=== PATIENT | male | born 1965 | race Caucasian/White ===

== ENCOUNTER 2020-01-17 18:56 | Emergency (ER) | payer BC, SELFPAY ==
[2020-01-17 18:56] VITALS: BP 214/111; PULSE 78; RESP 16; TEMP 36.9; O2SAT 97; BMI 28.1
[2020-01-17 19:03] VITALS: BMI 28.1
--- NOTE | 2020-01-17 19:04 | ECG_ITS ---
APPROVED REPORT Exam: Resting ECG HR:77 bpm ECG Measurements Heart Rate 77 AXES FL 160 P 55 QRSd 88 QRS -23 QT 368 T -10 QTc 416 Conclusion Normal sinus rhythm Nonspecific ST and T wave abnormality Abnormal ECG Electronically signed by : Pankaj Camp, 01/18/2020 06:10:20
--- NOTE | 2020-01-17 19:04 | XR_ITS ---
PROCEDURE: XR CHEST PORTABLE CLINICAL HISTORY: CHEST PAIN Left-sided chest pain COMPARISON: CR CXR2V XR chest 2V from 10/10/2017 FINDINGS: The cardiomediastinal silhouette and pulmonary vascularity are within normal limits. There is mild elevation of the left hemidiaphragm. No lobar consolidation or collapse. No acute bony abnormalities. IMPRESSION: No acute findings. Dictated by: Parish Martino MD 01/18/2020 05:14 Parish Martino MD in [place] 01/18/2020 05:14
--- NOTE | 2020-01-17 19:15 | HMH.EDCP ---
ED Disposition Clinical Impression: Nonspecific chest pain, Dyspepsia Disposition: Home, Self-Care Condition on Discharge: Good Instructions: DI for Atypical Chest Pain Prescriptions: Famotidine [Pepcid] 20 mg PO DAILY #20 tab Prescription Printed Referrals: Provider,Referral, [Referring] - - Critical Care Critical Care Time: No Attestation: On 01/17/20, the high probability of a clinically significant, sudden or life threatening deterioration of the following system(s) required my full and direct attention, intervention and personal management. The time I documented below is in addition to time spent performing reported procedures but includes the following listed in this critical care notation. Medical Decision Making - Medical Records Medical records reviewed: Yes: I reviewed the patient's medical records. - Lio Inquiry Pt receiving controlled substance: No Vital Signs: 01/17/20 18:56 01/17/20 19:24 Temperature 98.5 F Temperature Source Oral Pulse Rate [Left Radial] 78 62 Respiratory Rate 16 16 Blood Pressure [Right Arm] 214/111 H 171/109 H Blood Pressure Mean [Right Arm] 145 129 Blood Pressure Source [Right Arm] Automatic Cuff Blood Pressure Position [Right Arm] Sitting Sitting 02 Sat by Pulse Oximetry 97 97 Oxygen Delivery Method Room Air Room Air - Lab Data Lab Results 01/17/20 18:56: WBC 11.7 H, RBC 5.53, Hgb 16.7, Hct 48.6, MCV 87.8, MCH 30.1, MCHC 34.3, RDW 16.3, Plt Count 212, MPV 23.7 H, Neut % (Auto) 73.0, Lymph % (Auto) 20.1, [place] % (Auto) 4.9, Eos % (Auto) 0.6, Baso % (Auto) 1.5, Neut # (Auto) 8.6 H, Lymph # (Auto) 2.4, [place] # (Auto) 0.6, Eos # (Auto) 0.1, Baso # (Auto) 0.2 01/17/20 18:56: Sodium 138, Potassium 3.8, Chloride 100, Carbon Dioxide 29, Anion Gap 12.8, BUN 15, Creatinine 1.10, Estimated Creat Clear 91, Estimated GFR 70, Est GFR ( Amer) 84, Glucose 187 H, Calcium 9.6, Troponin I < 0.01 11/03/20 18:56: NT-Pro-B Natriuret Pep 21.4 Result diagrams: 01/17/20 18:56 01/17/20 18:56 Orders (Tests/Meds): ED MEDICATIONS Generic Name Dose Route Start Last Admin Trade Name Freq PRN Reason Stop Dose Admin Lisinopril 10 mg 01/18/20 09:00 Lisinopril 10mg Tablet PO 02/17/20 08:59 DAILY HERNANDEZ Discontinued Medications Generic Name Dose Route Start Last Admin Trade Name Freq PRN Reason Stop Dose Admin Aspirin 325 mg 01/17/20 19:05 01/17/20 19:15 Aspirin 325mg Tablet PO 01/17/20 19:06 325 mg ONCE ONE Administration ORDERS Category Date Time Status XR chest portable Stat Exams 01/17/20 19:04 Taken Troponin I Q3H Lab 01/17/20 22:15 Ordered Troponin I Q3H Lab 01/18/20 01:15 Ordered - Radiology Data #1 Image(s): Chest Image Reviewed: Yes I reviewed the patient's radiology results, Yes I reviewed the patient's radiology image Preliminary Findings: Normal/NAD, No Infiltrates Seen - ECG Data Tracing #1 Normal ventricular rate of 77 bpm. Normal SD interval. Normal QTC. Sinus rhythm with nonspecific changes. ECG initial impression date: 01/17/20 ECG initial impression time: 18:56 - Reevaluation(s) Time: 19:46 Reevaluation #1: On reevaluation, patient remains pain-free. Troponin negative. Patient has follow-up with his PCP in the morning. I do believe this is related to dyspepsia. Patient was given strict return precautions. Verbalized understanding. Medical Decision Narrative: 54-year-old male presented to the emergency department with subacute chest discomfort. Patient symptoms are more consistent with dyspepsia. Patient is relatively low risk based on heart score. Work-up initiated. Chest Pain HPI - General Chief Complaint: Chest Pain Stated Complaint: Chest Pain Time Seen by Provider: 01/17/20 19:00 Mode of Arrival: Ambulatory Limitations: No Limitations Description of Symptoms (Recalled from ER Triage Doc. by RN): pt complains of intermitten chest pain for the past 2 weeks. pt described t
[2020-01-17 19:20] LABS: Basophils # 0.2 K/mm3 (0-0.2); Basophils % 1.5 % (0.1-2.0); Eosinophils # 0.1 K/mm3 (0.0-0.4); Eosinophils % 0.6 % (0.1-12.0); Hematocrit 48.6 % (42.0-52.0); Hemoglobin 16.7 g/dL (14.1-18.0); Lymphocytes # 2.4 K/mm3 (0.7-4.5); Lymphocytes % 20.1 % (10-50); Mean Corpuscular HGB Conc 34.3 g/dL (31.8-35.4); Mean Corpuscular Hemoglobin 30.1 pg (27.0-31.2); Mean Corpuscular Volume 87.8 fl (80-94); Mean Platelet Volume 23.7 fl (7.4-10.4); Monocytes # 0.6 K/mm3 (0.1-1.0); Monocytes % 4.9 % (1.7-9.3); Neutrophils # 8.6 K/mm3 (1.8-7.8); Platelet Count 212 K/mm3 (142-424); Red Blood Count 5.53 M/mm3 (4.60-6.20); Red Cell Distribution Width 16.3 % (11.5-17.5); White Blood Count 11.7 K/mm3 (4.8-10.8)
[2020-01-17 19:21] LABS: Chloride 100 mmol/L (98-107); Sodium 138 mmol/L (136-145)
[2020-01-17 19:22] LABS: Potassium 3.8 mmoL/L (3.5-5.1)
[2020-01-17 19:24] VITALS: BP 171/109; PULSE 62; RESP 16; O2SAT 97
[2020-01-17 19:25] LABS: Anion Gap 12.8 mEq/L (5-15); Blood Urea Nitrogen 15 mg/dl (9-20); Calcium 9.6 mg/dl (8.4-10.2); Carbon Dioxide 29 mmol/L (22.0-30.0); Creatinine Clearance Estimated 91 mL/min (50-200); Estimated Glomerular Filt Rate 70 ml/min (>60); GFR (African American) 84 ML/MIN (>60); Glucose 187 mg/dl (74-100)
[2020-01-17 19:35] LABS: NT Pro Brain Natriuretic Pep. 21.4 pg/mL (0-125)
[2020-01-17 19:37] LABS: Troponin I < 0.01 ng/ml (0.00-0.034)
[2020-01-17 20:01] VITALS: BP 181/101; PULSE 89; RESP 16; TEMP 36.8; O2SAT 98
== END 2020-01-17 20:02 | disposition home or self-care (01) ==
PROVIDERS: Emergency Provider Emergency Medicine; PCP Family Medicine
DX: R07.89 Other chest pain (principal); R10.13 Epigastric pain
CPT/HCPCS: 71045; 80048; 83880; 84484; 85025; 93005; 99282

== ENCOUNTER → 2020-01-30 07:11 | Outpatient (CLI) | payer BC, SELFPAY ==
--- NOTE | 2020-01-30 | CA_ITS ---
APPROVED REPORT Exam: Exercise Treadmill Technologist: Madisyn Salinas Ht: 5 ft 8 in Wt: 185 lbs BSA: 1.98 m2 HR: 64 bpm BP: 177/93 mmHg Indications: Chest pain Medical History Medications: Lisinopril,,,,, Famotidine,,,,, Stress Test Details Test: Darian HR Resting HR: 70 bpm Max Heart Rate (APMHR): 166 bpm Max HR Achieved: 155 bpm Target HR (85% APMHR): 141 bpm % of APMHR: 93 Recovery HR: 89 bpm BP Resting BP: 177.0/93.0 mmHg Max BP: 194.0/92.0 mmHg Recovery BP: 152.0/94.0 mmHg ECG Clinical Exercise duration: 09:00 min Highest Stage Achieved: Exercise capacity: 10.1 METs Stress ECG Conclusion Resting EKG: Sinus rhythm Darian Protocol complete. Exercised 09:00, METS 10.1, Maximum blood pressure 194/92, Maximum heart rate 155 BPM. Test stopped due to shortness of breath during peak exercise. Symptoms: Shortness of breath during peak exercise, resolved in recovery. Arrhythmias/Ectopy: Occasional PVC ST-T Changes: Less than 1.[address] depression. Conclusion: Images to follow. Test Summary . . . . . . . . . Cardiolite injected . Stop exercise at 09:00 . . . . . . Electronically signed by : Magdaleno Martinez, 01/31/2020 06:39:43
--- NOTE | 2020-01-30 07:19 | NM_ITS ---
APPROVED REPORT Exam: Nuclear Stress Test Indication: Chest pain, HTN, High cholesterol, Family history Patient Location: Outpatient Stress Tech: Madisyn Salinas [place] Tech:Юлия Loza, ARRT, RT (R)(N) Ht: 5 ft 8 in Wt: 185 lbs HR: 64 bpm BP: 177/93 mmHg BSA: 1.98 m2 BMI: 28.1 History: Chest pain, HTN, High cholesterol, Family history Procedure: Patient exercised on Darian protocol 9:00 minutes and sec, resting heart rate 64 bpm, resting blood pressure 177/93 mmHg, with exercise maximum heart rate achived was 155 bpm which is 93 % of the maximum predicted heart rate and blood pressure was 194/92 mmHg. Test was stopped due to SOB. Patient denied any complaint of chest pain. Patient has Good exercise capacity, achieved 10.1 METs of workload on treadmill, the blood pressure response to exercise was Adequate. Electrocardiogram Resting electrocardiogram shows sinus rhythm, with exercise there is less than 1.[address] segment depression noted from the baseline EKG. The EKG portion of the exercise Myoview is negative for ischemia. Cardiac Stress and Resting SPECT Images: Cardiac Stress and Resting SPECT images were obtained using technetium 99m Myoview 32.0 mCi stress and 10.55 mCi at rest. Gated SPECT for the analysis of segmental wall motion and calculation of the ejection fraction also done. Cardiac stress and rest SPECT images show uniform myocardial activity without segmental perfusion abnormality, computer derived ejection fraction is 54% with no regional wall motion abnormality, right ventricle is mildly enlarged with normal contractility. Conclusion: 1. The EKG portion of the exercise Myoview is negative for ischemia, patient has good exercise capacity achieved 10.1 METs of workload on treadmill, the blood pressure response to exercise was adequate, there was no exercise-induced chest discomfort 2. No scintigraphic evidence of reversible ischemia seen, computer derived ejection fraction 54% with no regional wall motion abnormality, right ventricle is normal size and contractility. 3. Normal exercise Myoview study. Electronically signed by : Magdaleno Martinez, 01/31/2020 06:52:07
--- NOTE | 2020-01-30 09:21 | HMH.ITSHM ---
Current Home Medications as stated by this patient Amandeep Pedro or life assurance representative. []LISINOPRIL
== END ==
PROVIDERS: PCP Family Medicine; Visit Provider Family Medicine
DX: R07.9 Chest pain, unspecified (principal)
CPT/HCPCS: 78452; 93017; A9502

== ENCOUNTER → 2020-10-26 08:28 | Outpatient (CLI) | payer BC, SELFPAY ==
[2020-10-26 09:37] LABS: Alanine Aminotransferase 42 U/L (12-78); Albumin Level 3.9 g/dl (3.5-5.0); Albumin/Globulin Ratio 1.5 (1.1-1.8); Alkaline Phosphatase 141 U/L (38-126); Anion Gap 11.7 mEq/L (5-15); Aspartate Amino Transferase 26 U/L (17-59); Bilirubin,Total 0.8 mg/dl (0.2-1.3); Blood Urea Nitrogen 18 mg/dl (9-20); Calcium 8.7 mg/dl (8.4-10.2); Carbon Dioxide 28 mmol/L (22.0-30.0); Chloride 100 mmol/L (98-107); Estimated Glomerular Filt Rate 88 ml/min (>60); GFR (African American) 106 ML/MIN (>60); Globulin 2.6 g/dL (1.3-3.2); Glucose 351 mg/dl (74-100); HDL Cholesterol 45 mg/dl (40-60); Potassium 4.7 mmoL/L (3.5-5.1); Sodium 135 mmol/L (136-145); Total Protein,Serum 6.5 g/dl (6.3-8.2)
[2020-10-26 09:48] LABS: Direct LDL Cholesterol 167.25 mg/dL (100-129)
[2020-10-26 10:01] LABS: Chol/HDL Ratio 8.1 (1-3.5); Cholesterol 363 mg/dl (140-200); Triglycerides 456 mg/dl (30-150)
[2020-10-26 10:07] LABS: Prostate Specific Ag Screen 5.5 ng/ml (0.0-4.0)
[2020-10-26 12:01] LABS: Hemoglobin A1C 13.5 % (4.0-6.0)
== END ==
PROVIDERS: Visit Provider Family Medicine
DX: R81 Glycosuria (principal); N40.0 Benign prostatic hyperplasia without lower urinary tract symptoms; Z12.5 Encounter for screening for malignant neoplasm of prostate
CPT/HCPCS: 36415; 80053; 80061; 83036; G0103

== ENCOUNTER 2023-07-13 09:53 | Emergency (ER) | payer BC, SELFPAY ==
--- NOTE | 2023-07-13 09:50 | ECG_ITS ---
APPROVED REPORT Exam: Resting ECG HR:66 bpm ECG Measurements Heart Rate 66 AXES SD 162 P 55 QRSd 100 QRS -47 QT 355 T 34 QTc 368 Conclusion SINUS RHYTHM PATTERN CONSISTENT WITH PULMONARY DISEASE LEFT ANTERIOR FASCICULAR BLOCK [QRS AXIS <= -45, QR IN I, RS IN II] ABNORMAL ECG Electronically signed by : SLAVA RANDOLPH, 07/13/2023 15:28:43
[2023-07-13 09:54] VITALS: BP 136/74; PULSE 83; RESP 16; TEMP 36.6; O2SAT 94; BMI 26.6
--- NOTE | 2023-07-13 09:59 | XR_ITS ---
FINAL REPORT TECHNIQUE: Single view chest CLINICAL HISTORY: chest pain FINDINGS: A single view of the chest was obtained. The heart and mediastinum are within normal limits. The lungs are clear. There is no pneumothorax. Osseous structures are unremarkable. IMPRESSION: No acute cardiopulmonary process. Reviewed, Interpreted and Dictated by Laxmi Grace MD Transcribed by Jessie Dickinson Authenticated and [facility]
[2023-07-13 10:00] VITALS: BP 181/99; PULSE 70; RESP 18; O2SAT 97
[2023-07-13 10:05] LABS: MANUAL DIFFERENTIAL MANUAL DIFFERENTIAL (MANUAL DIFF)
--- NOTE | 2023-07-13 10:07 | HMH.EDCP ---
Discharge Plan Disposition Chief Complaint: Chest Pain Prescriptions Prescriptions: No Action famotidine 20 MG tablet 20 mg PO DAILY Qty: 20 0RF Referrals Follow up/Referrals: Pavan Arcos MD [Primary Care Provider] - See instructions Larry Reddy MD [Staff Physician] - See instructions Activity Restrictions/Add. Instructions Additional Instructions/Restrictions: At this time it was felt you are safe to be discharged home. If new or worsening symptoms please do not hesitate to return the emergency department. Please follow-up with Dr. Andrews tomorrow at 1 PM. When you show up at the cardiology desk say that Dr. Choi wanted you seen at 1 PM as you are in the emergency department yesterday. Please continue to follow-up with your family doctor for long-term management of your elevated blood sugar. Clinical Impressions Clinical Impression: Chest pain, Hyperglycemia Discharge ED Provider: Fahad Kay [facility] General Chief Complaint: Chest Pain Stated Complaint: chest pain Time Seen by Provider: 07/13/23 09:54 Mode of Arrival: Ambulatory Source of Information: Patient Limitations: No Limitations Description of Symptoms (Recalled from ER Triage Doc. by RN): Patient complaint of left sided chest pain that radiates to his armpit. States it started last night and comes and goes. History of Present Illness HPI narrative: Patient is a 57-year-old male with past medical history of hypertension, hyperlipidemia who presents emergency department for evaluation of chest pain. Onset was acute, over the last 24 hours, left-sided radiating into his axilla. Worse with exertion but does occur at rest and waxes and wanes. Does not radiate through to his back. Patient has no past medical history of ACS or stents. No other acute complaints at this time. Related Data Previous Rx's Medication Instructions Recorded famotidine 20 mg tablet 20 mg PO DAILY #20 tabs 01/17/20 Allergies Allergy/AdvReac Type Severity Reaction Status Date / Time No Known Allergies Allergy Unverified 03/03/17 14:52 [facility] Disclaimer: The information contained in this section may have been updated after the patient was seen, as this information can be updated by other users. Social History Smoking Status: Unknown if ever smoked alcohol intake: never current occupational status: employed Travel in the last 8 weeks: None ROS Obtained: Yes Systems reviewed as appropriate & no additional complaints except as documented Physical Exam General General appearance: alert and in no apparent distress Head Head exam: atraumatic and normocephalic Eye Eye exam: Present PERRL and EOMI ENT ENT exam: Present mucous membranes moist Neck Neck exam: Present normal inspection Chest Chest inspection: Present normal inspection and symmetric chest wall rise Respiratory Respiratory exam: Present normal lung sounds bilaterally; Absent respiratory distress Cardiovascular Cardiovascular exam: Present regular rate, normal rhythm and other (Palpable left radial pulse) Abdominal Exam Abdominal exam: Present soft; Absent tenderness Extremities Exam Extremities exam: Present normal inspection and other (No asymmetric swelling or discoloration of the bilateral upper extremities) Neurological Exam Neurological exam: Present alert Psychiatric Psychiatric exam: Present normal affect Skin Skin exam: Present warm and dry HEART Score HEART Score HEART Score assessment performed?: Yes History (anamnesis): Highly suspicious ECG: Non-specific disturbance Age: 45-65 years Risk factors: 1-2 risk factors Troponin: </= normal limit HEART Score: 5 Critical Care Critical Care Time Critical Care Time: No Medical Decision Making Lio Inquiry Pt receiving controlled substance: No Vital Signs Vital Signs: 07/13/23 09:54 07/13/23 10:00 07/13/23 11:11 Temperature 97.8 F Temperature Source Oral Pulse Rate 70 54 L Pulse Rate [Radial] 83 Respiratory Rate 16 18 13 Blood Pressure 181/99 H 158/83 H Blood Pressure [Right Arm] 136/74 Blood Pressure Mean 138 Blood Pressure Mean [Right Arm] 94 Blood Pressure Source [Right Arm] Automatic Cuff Blood Pressure Position [Right Arm] Sitting 02 Sat by Pulse Oximetry 94 L 97 98 Oxygen Delivery Method Room Air Room Air 07/13/23 11:30 07/13/23 12:00 Temperature Temperature Source Pulse Rate 53 L 59 L Pulse Rate [Radial] Respiratory Rate 17 12 Blood Pressure 147/82 H 151/88 H Blood Pressure [Right Arm] Blood Pressure Mean Blood Pressure Mean [Right Arm] Blood Pressure Source [Right Arm] Blood Pressure Position [Right Arm] 02 Sat by Pulse Oximetry 99 98 Oxygen Delivery Method Room Air Room Air Lab Data Labs: Lab Results 07/13/23 09:55: WBC 6.5, RBC 5.52, Hgb 16.4, Hct 49.1, MCV 89.0, MCH 29.7, MCHC 33.4, RDW 14.0, Plt Count 218, MPV 8.8, Neut % (Auto) 66.5, Lymph % (Auto) 26.7, [place] % (Auto) 4.8, Eos % (Auto) 1.1, Baso % (Auto) 0.8, Neut # (Auto) 4.3, Lymph # (Auto) 1.7, [place] # (Auto) 0.3, Eos # (Auto) 0.1, Baso # (Auto) 0.1, Total Counted 100, Neutrophils % (Manual) 63, Band Neutrophils % 1.0, Lymphocytes % (Manual) 29, Monocytes % (Manual) 7, Platelet Estimate Normal, RBC Morphology Normal, Sodium 139, Potassium 4.1, Chloride 106, Carbon Dioxide 28, Anion Gap 9.1, BUN 14, Creatinine 1.10, Estimated Creat Clear 83, Estimated GFR 69, Est GFR ( Amer) 83, Glucose 192 H, Calcium 9.4, Total Bilirubin 0.7, AST 26, ALT 23, Alkaline Phosphatase 107, Troponin I < 0.01, Total Protein 7.4, Albumin 4.6, Globulin 2.8, Albumin/Globulin Ratio 1.6 07/13/23 12:15: Troponin I < 0.01 07/13/23 09:55 07/13/23 09:55 Response Orders (Tests/Meds): ED MEDICATIONS Generic Name Dose Route Start Last Admin Trade Name Freq PRN Reason Stop Dose Admin Nitroglycerin 0.4 mg 07/13/23 10:01 Nitroglycerin 0.4mg Sl Tablet SL 08/12/23 10:00 Q5MINP PRN Chest Pain Sodium Chloride 10 ml 07/13/23 09:59 Sodium Chloride 0.9% 10ml Flush Syringe IV 08/12/23 09:58 NEEDED PRN Maintain IV Site Discontinued Medications Generic Name Dose Route Start Last Admin Trade Name Freq PRN Reason Stop Dose Admin Aspirin 162 mg 07/13/23 10:01 07/13/23 10:10 Aspirin 81mg Chewable Tablet PO 07/13/23 10:02 162 mg ONCE ONE Administration ORDERS Category Date Time Status XR chest portable Stat Exams 07/13/23 09:59 Taken Complete Blood Count Man Dif Stat Lab 07/13/23 09:55 Completed Comprehensive Metabolic Panel Stat Lab 07/13/23 09:55 Completed Trop I [Troponin I] Stat Lab 07/13/23 09:55 Completed Troponin I Q3H Lab 07/13/23 12:15 Completed Troponin I Q3H Lab 07/13/23 16:00 Ordered ECG Data Tracing #1: ECG Narrative: Independently interpreted by me, rate is 66, rhythm is regular, axis is leftward deviated, no ST elevation in anatomical contiguous leads, QTc is 368. MDM Narrative Medical Decision Narrative: In summary patient is a 57-year-old male with past medical history described above who presents emergency department for evaluation of chest pain. Patient is hemodynamically stable nontoxic-appearing upon arrival, afebrile. Differential diagnosis includes ACS, noncardiac chest pain, among others. Workup will be conducted with hematologic labs, chest x-ray, EKG, serial troponins. Initial inventions include aspirin, nitroglycerin. Workup reviewed by me, hematologic labs are nonactionable, serial troponins are below detectable limit. Upon repeat evaluation patient has no ongoing chest pain. I discussed the case with Dr. Choi, we both agree that patient is appropriate for outpatient management at this time we will follow-up with cardiology tomorrow at 1 PM.
[2023-07-13] MEDS: ASPIRIN 81MG CHEWABLE TABLET 162 MG PO (10:10)
--- NOTE | 2023-07-13 10:10 | PC.NURSE ---
Patient up to bathroom.
[2023-07-13 10:14] LABS: Basophils # 0.1 K/mm3 (0-0.2); Basophils % 0.8 % (0.1-2.0); Eosinophils # 0.1 K/mm3 (0.0-0.4); Eosinophils % 1.1 % (0.1-12.0); Hematocrit 49.1 % (42.0-52.0); Hemoglobin 16.4 g/dL (14.1-18.0); Lymphocytes # 1.7 K/mm3 (0.7-4.5); Lymphocytes % 26.7 % (10-50); Mean Corpuscular HGB Conc 33.4 g/dL (31.8-35.4); Mean Corpuscular Hemoglobin 29.7 pg (27.0-31.2); Mean Platelet Volume 8.8 fl (7.4-10.4); Monocytes # 0.3 K/mm3 (0.1-1.0); Monocytes % 4.8 % (1.7-9.3); Neutrophils # 4.3 K/mm3 (1.8-7.8); Neutrophils % 66.5 % (37.0-80.0); Platelet Count 218 K/mm3 (142-424); Red Blood Count 5.52 M/mm3 (4.60-6.20); White Blood Count 6.5 K/mm3 (4.8-10.8)
[2023-07-13 10:16] LABS: Alanine Aminotransferase 23 U/L (12-78); Albumin Level 4.6 g/dl (3.5-5.0); Albumin/Globulin Ratio 1.6 (1.1-1.8); Alkaline Phosphatase 107 U/L (38-126); Anion Gap 9.1 mEq/L (5-15); Aspartate Amino Transferase 26 U/L (17-59); Bilirubin,Total 0.7 mg/dl (0.2-1.3); Blood Urea Nitrogen 14 mg/dl (9-20); Calcium 9.4 mg/dl (8.4-10.2); Carbon Dioxide 28 mmol/L (22.0-30.0); Chloride 106 mmol/L (98-107); Creatinine Clearance Estimated 83 mL/min (50-200); Estimated Glomerular Filt Rate 69 ml/min (>60); GFR (African American) 83 ML/MIN (>60); Globulin 2.8 g/dL (1.3-3.2); Glucose 192 mg/dl (74-100); Potassium 4.1 mmoL/L (3.5-5.1); Sodium 139 mmol/L (136-145); Total Protein,Serum 7.4 g/dl (6.3-8.2)
[2023-07-13 10:54] LABS: Troponin I < 0.01 ng/ml (0.00-0.034)
--- NOTE | 2023-07-13 11:10 | PC.NURSE ---
Rounded on pt. No needs voiced at this time. Rates his pain 0/10 at this time. Call light within reach.
[2023-07-13 11:11] VITALS: BP 158/83; PULSE 54; RESP 13; O2SAT 98
[2023-07-13 11:26] LABS: Lymphocytes % 29 % (10-50); Monocytes % 7 % (2-9); Neutrophils % 63 % (42-76); Total Cells Counted 100
[2023-07-13 11:27] LABS: Platelet Estimate Normal; RBC Morphology Normal
[2023-07-13 11:30] VITALS: BP 147/82; PULSE 53; RESP 17; O2SAT 99
[2023-07-13 12:00] VITALS: BP 151/88; PULSE 59; RESP 12; O2SAT 98
--- NOTE | 2023-07-13 12:14 | PC.NURSE ---
Dr. Kay at BS to update pt on POC
--- NOTE | 2023-07-13 12:30 | PC.NURSE ---
pt ambulatory to bathroom
--- NOTE | 2023-07-13 12:40 | PC.NURSE ---
Dr. Choi paged
[2023-07-13 12:48] LABS: Troponin I < 0.01 ng/ml (0.00-0.034)
[2023-07-13 13:04] VITALS: BP 151/88; PULSE 59; RESP 12; TEMP 36.6; O2SAT 98
== END 2023-07-13 13:05 | disposition home or self-care (01) ==
PROVIDERS: Emergency Provider Emergency Medicine; PCP Family Medicine
DX: R07.9 Chest pain, unspecified (principal); I44.4 Left anterior fascicular block; I10 Essential (primary) hypertension; E78.5 Hyperlipidemia, unspecified; R73.9 Hyperglycemia, unspecified
CPT/HCPCS: 71045; 80053; 84484; 85007; 85014; 85018; 85048; 85049; 93005; 99284

== ENCOUNTER 2023-07-27 10:09 | Outpatient (CLI) | payer SELFPAY ==
--- NOTE | 2023-07-27 10:15 | CT_ITS ---
APPROVED REPORT Industrial Custodian: CLINICAL INDICATION Risk stratification TECHNIQUE Image Acquisition: A 128 slice MDCT scanner (Helixbinda View) was used for data acquisition. A noncontrast coronary calcium scan was performed. A CT attenuation threshold of 130 Hounsfield units (HU) was used for the detection of calcium in contiguous voxels of 1 sq mm in area to be counted as individual lesions. A tube voltage of 120 KVp was used. The patient received no medications prior to the coronary calcium CT. Image Reconstruction Transaxial images were reconstructed at 0.67 mm slide thickness. Data was reviewed interactively on an advanced workstation capable of 2 and 3-dimensional displays in all conventional reconstruction formats, including multiplanar reformations, maximum intensity projections, curved multiplanar reformations, and volume rendered reconstructions. When applicable, selected routine images describing the relevant coronary anatomy and pathology were saved and sent to PACS. Complications None Technical Quality Overall image quality was good. Total DLP (Dose-Length Product) is 179.9 mGy-cm. The reported value represents the total of one or more individual components during the CT acquisition of this date and at this time, and as such, the same value may appear in more than one CT report depending on the interpreting/reporting physicians. COMPARISON None FINDINGS CT Coronary Calcium Scoring LMA (Left Main Artery) = 0 LAD (Left Anterior Descending) = 99 LCX (Left Coronary Circumflex) = 0 RCA (Right Coronary Artery) = 0 Total Calcium Score = 99 using the AJ-130 method. There is no identifiable calcification in the aortic valve, mitral annulus or mitral valve, pericardium, or myocardium. IMPRESSION -Coronary artery calcification is present. -Total Calcium Score (Agatston Score) = 99 using the AJ-130 method. -The observed calcium score of 99 is at 75th percentile for subjects of the same age, sex, and race/ethnicity. The interpretation of the calcium heart score is based on the following continuum*: 0 = no calcified plaque detected (risk of coronary artery disease is very low ??? less than 5%) 1-10 = calcium detected in extremely minimal levels (risk of coronary diseases is still low ??? less than 10%) 11-100 = mild levels of plaque detected with certainty (mild or minimal narrowing of heart arteries is likely) 101-400 = definite,at least moderate levels of plaque detected (relatively high risk of a heart attack within 3-5 years) >401-999 = extensive levels of plaque detected (high risk of heart attack, high levels of vascular disease are present, high likelihood of at least one significant coronary narrowing) *The calcium heart score quantifies the burden of coronary calcification/plaque in the coronary arteries. The calcium heart score does not evaluate the presence or the burden of non-calcified (i.e. soft) plaque. The coronary and cardiac findings of this Coronary Calcium CT were reviewed, reported, and signed by Larry Reddy MD (Degreaser Operator). Conclusion Electronically signed by : Mary Reddy MD 07/28/2023 11:48:19
== END 2023-07-27 23:59 | disposition home or self-care (01) ==
LOC: RAD 10:09
PROVIDERS: PCP Family Medicine; Visit Provider Family Medicine
DX: Z13.6 Encounter for screening for cardiovascular disorders (principal)
CPT/HCPCS: 75571